=== PATIENT | male | born 1965 | race Caucasian/White ===

== ENCOUNTER 2018-10-06 15:06 | Observation (INO) | payer OTHER ==
[2018-10-06] MEDS ORDERED: D50W 25 GM/50 ML SYRINGE IV PRN (16:19)
[2018-10-06] MEDS ORDERED: GLUCAGON 1 MG/VIAL IM PRN (16:19)
[2018-10-06] MEDS: INSULIN -REGULAR HUMAN 50 UNIT/0.5 ML ML SQ SCH ×2 (16:30→20:56)
--- NOTE | 2018-10-06 17:10 | RAD REPORT ---
EXAM DESCRIPTION: RAD - Chest Pa And Lat (2 Views) - 10/06/2018 4:49 pm CLINICAL HISTORY: Atrial fibrillation COMPARISON: None. TECHNIQUE: PA and lateral views of the chest were obtained. FINDINGS: The lungs are clear of a focal infiltrate, mass, failure or pulmonary edema pattern. Inter stitial markings are mildly prominent suspected to be baseline. Minimal interstitial edema or infiltr ate not excluded. Heart size is normal and central vasculature is within normal limits. No pleural effusion or pneumothorax seen. No acute bony finding noted. Aortic tortuosity is noted. IMPRESSION: No acute cardiopulmonary process. Mild prominence of the interstitial markings favored to be baseline rather than minimal interstitial edema or infiltrate.
[2018-10-06] MEDS ORDERED: CABERGOLINE PO SCH (17:15)
[2018-10-06 17:18] LABS: Absolute Lymphocytes (CBC) 2.3 K/uL (0.7-4.9); Absolute Monocytes 0.9 K/uL (0.1-1.3); Absolute Neutrophil 6.7 K/uL (1.8-8.0); Basophils % 0.7 % (0-1.3); Eosinophils % 2.9 % (0-4.4); Hematocrit 43.6 % (39.6-49.0); Lymphocytes % 22.6 % (15.3-44.8); MCH 30.7 pg (27.0-35.0); MCV 89.4 fL (80-100); MPV 8.9 fL (7.6-11.3); Monocytes % 8.6 % (3.3-12.3); RBC Red Blood Cell Count 4.88 M/uL (4.33-5.43)
[2018-10-06 17:22] LABS: Protime INR 1.3
[2018-10-06 17:36] VITALS: BMI 39.3
[2018-10-06 17:46] LABS: Albumin 3.8 g/dL (3.4-5.0); Bilirubin Total 0.3 mg/dL (0.2-1.0); Magnesium 1.9 mg/dL (1.8-2.4); Potassium 4.2 mmol/L (3.5-5.1); Protein, Total 7.5 g/dL (6.4-8.2); Thyroid Stimulating Hormone 1.19 uIU/mL (0.360-3.740)
--- NOTE | 2018-10-06 18:03 | EKG ---
Test Date: 2018-10-06 Test Time: 16:25:59 Electrophysiology Technologist: LUIS ALBERTO MEASUREMENT RESULTS: Intervals: Rate: 111 MT: QRSD: 96 QT: 330 QTc: 448 [place]: P: MT: QRS: 1 T: 23 INTERPRETIVE STATEMENTS: Atrial fibrillation with rapid ventricular response Abnormal ECG Compared to ECG 10/06/2018 12:50:22 No significant changes Electronically Signed On 10-06-18 18:02:47 FUNDRAISING DIRECTOR by Ronny Marin
[2018-10-06] MEDS: SOTALOL HCL 80 MG TAB PO SCH (18:04)
[2018-10-06] MEDS: RIVAROXABAN 20 MG TABLET PO SCH (18:04)
[2018-10-06] MEDS ORDERED: ROSUVASTATIN 10 MG PO SCH (21:00)
[2018-10-06] MEDS ORDERED: HOME MED 1 EA UNK (Amlodipine Besylate/Benazepril [Amlodipine-Benazepril 5-20 Mg] 1 EACH) PO SCH (22:15)
[2018-10-06 23:22] LABS: Urine Appearance CLOUDY; Urine Bilirubin NEGATIVE (NEG); Urine Blood NEGATIVE (NEG); Urine Color YELLOW; Urine Glucose NEGATIVE (NEG); Urine Protein NEGATIVE (NEG); Urine pH 5.5 (5.0-7.0)
[2018-10-06 23:24] LABS: Urine Microscopic Reflex ORDER UMIC
[2018-10-07 00:15] LABS: Urine Amorphous Sediment 4+ /HPF (NONE SEEN); Urine Bacteria <20 /HPF (NONE SEEN); Urine Culture Reflex Order NOT NEEDED; Urine RBC NONE SEEN /HPF (NONE SEEN)
[2018-10-07] MEDS: SOTALOL HCL 80 MG TAB PO SCH ×2 (05:00→17:13)
[2018-10-07] MEDS: INSULIN -REGULAR HUMAN 50 UNIT/0.5 ML ML SQ SCH ×3 (07:30→16:30)
[2018-10-07] MEDS ORDERED: METFORMIN ER 500 MG TAB PO SCH (08:00)
--- NOTE | 2018-10-07 12:29 | ECHO ---
HEIGHT: 5 ft 7 in WEIGHT: 251 lb 0 oz DATE OF STUDY: 10/07/[address]: Graham Xavier MD 2-DIMENSIONAL: YES M.MODE: YES DOPPLER: YES COLOR FLOW: YES TDS: PORTABLE: DEFINITY: BUBBLE STUDY: DIAGNOSIS: ATRIAL FIBRILLATION CARDIAC HISTORY: CATHERIZATION: NO SURGERY: NO PROSTHETIC VALVE: NO PACEMAKER: NO MEASUREMENTS (cm) DIASTOLIC (NORMALS) SYSTOLIC (NORMALS) IVSd 1.1 (0.6-1.2) LA Diam 3.6 (1.9-4.0) LVEF 67% LVIDd 4.7 (3.5-5.7) LVIDs 2.9 (2.0-3.5) %FS 37% LVPWd 1.2 (0.6-1.2) Ao Diam 3.1 (2.0-3.7) 2 DIMENSIONAL ASSESSMENT: RIGHT ATRIUM: NORMAL LEFT ATRIUM: NORMAL RIGHT VENTRICLE: NORMAL LEFT VENTRICLE: NORMAL TRICUSPID VALVE: NORMAL MITRAL VALVE: NORMAL PULMONIC VALVE: NORMAL AORTIC VALVE: NORMAL PERICARDIAL EFFUSION: NONE AORTIC ROOT: NORMAL LEFT VENTRICULAR WALL MOTION: NORMAL DOPPLER/COLOR FLOW: TRACE TRICUSPID REGURGITATION. NORMAL RIGHT VENTRICULAR SYSTOLIC PRESSURE. COMMENTS: NORMAL 2-DIMENSIONAL ECHOCARDIOGRAM. TRACE TRICUSPID REGURGITATION. ATRIAL FIBRILLATION 80-100 BEATS PER MINUTE. TECHNOLOGIST: SAIRA ROBLEDO
[2018-10-07 12:38] VITALS: O2SAT 95
--- NOTE | 2018-10-07 13:26 | CON ---
Reason For Consult: Atrial fibrillation. History Of Present Illness: Mr. Harrell is 53. He was not aware he was in atrial fibrillation. He w as seeing Dr. Xavier yesterday because of diabetes, hypertension, prolactin, secreting tumor and was fo und to have atrial fibrillation inadvertently. He was placed in the hospital. He has been on Xarelt o and Betapace. He has received 2 doses of Betapace 80 mg. His heart rate is well controlled. He r emains in atrial fibrillation. The patient states his pulse is usually been 80 or 90 for several wee ks. He has not noticed anything irregular. When he first got an EKG, his heart rate while in atrial fibrillation was 111. There is no other abnormality on the EKG other than the atrial fibrillation a nd the heart rate. Mr. Harrell has obesity, underlying diabetes, prolactin secreting tumor, dyslipide arian. He takes carvedilol, cabergoline, metformin, rosuvastatin, amlodipine, and benazepril at home. Carvedilol has been stopped and Betapace has been started, also the Xarelto while in the hospital. Physical Examination: General: 5 feet 7 inches, 251 pounds, obese, alert, oriented, pleasant, not in distress. Lungs: Clear. Heart: Irregular, otherwise it is normal. Vital Signs: Blood pressure is 113/75, heart rate 79. Impression: The patient seems to be tolerating the Betapace well. I suspect he has been in atrial f ibrillation for weeks or months and was just not aware of it, so before trying to cardiovert him, I w ould recommend he be in outpatient for a few weeks. If he tolerates his third dose of Betapace, he c ould be discharged home, have an outpatient stress test, and come back in about 3 weeks for a cardioversion if it is necessary. We have demonstrated he is tolerant to Betapace, does not have a p roarrhythmic effect. LISA/ALONZO Voice ID: [id number] Report ID: [id number]
[2018-10-07 16:11] VITALS: BP 147/95; TEMP 98.6
[2018-10-07] MEDS: RIVAROXABAN 20 MG TABLET PO SCH (17:12)
--- NOTE | 2018-10-07 19:31 | HP ---
Date of Admission: 10/06/2018 Reason For Admission: Atrial fibrillation. History Of Present Illness: This is a 53-year-old male patient, came into office for his regular [facility] visit and during routine evaluation at the office, it was noted that his heart rate was rapid a nd irregular. Upon further questioning, patient admitted that he has felt some fluttering type of se nsation in his chest lately. No chest pain. No shortness of breath. After he was evaluated, an out patient electrocardiogram was done, which showed atrial fibrillation and this was a new onset atrial fibrillation. After details were discussed with him, it was recommended for patient to be admitted t o the [facility] for further evaluation and management of this problem, and the patient was directly ad mitted to telemetry floor. Allergies: HE HAD SIDE EFFECT WITH ATORVASTATIN CAUSING ITCHING. Medications: He takes Cabergoline 0.5 mg, takes half a tablet 2 times every week, carvedilol 25 mg 2 times a day, Crestor 10 mg daily, Lotrel 5/21 tablet daily, metformin 1000 mg 2 times a day. Review of Systems: Cardiovascular: As mentioned above. All other systems reviewed and negative. Social History: Negative for smoking and alcohol use. Family History: Significant for siblings with lung cancer and diabetes. Mother with hypertension an d diabetes. Past Surgical History: Significant for vasectomy. Past Medical History: Significant for hypertension, mixed hyperlipidemia, type 2 diabetes mellitus, pituitary microadenoma, sleep apnea. Physical Examination: Vital Signs: When I saw him at office, his vital signs included height 69 inches, weight 251 pounds, blood pressure 117/79, pulse 112 irregular, respiratory rate 15, temperature 98.9. General: Awake, alert, oriented, not in distress. HEENT: Head atraumatic, normocephalic. Conjunctivae nonerythematous. Sclerae white. Mouth, no thr ush or edema noted. Ears/Nose, no mass, lesion, discharge noted. Neck: Supple. No JVD, lymph nodes, bruit, thyromegaly noted. Lungs: Bilateral good equal air entry. Clear to auscultation. No rhonchi. No rales. Heart: Sounds normal. Heart rate rapid and irregular rhythm. Abdomen: Soft, bowel sounds normal. No guarding, rigidity, tenderness, mass, hepatosplenomegaly, dis tention, or bruit noted. Extremities: No leg edema. No calf tenderness. Skin: No rash, ulcer, cellulitis. Lymphatics: No lymph node enlargement in neck, supraclavicular, infraclavicular region. Neuro: No focal neurological deficit. Chest: Unremarkable. External Genitalia: Deferred. Rectal: Deferred. Laboratory Data: EKG shows atrial fibrillation. White count 10.3, hemoglobin 15, platelets 251. PT , PTT normal, except pro-time is slightly elevated at 15.4, INR 1.30. Sodium 144, potassium 4.2, chl oride 109, bicarb 27, BUN 19, creatinine 1.40, glucose 122. Hemoglobin A1c 7. Liver function tests unremarkable. TSH 1.19. Urinalysis unremarkable. Chest x-ray, no acute cardiopulmonary changes. Impression: 1.Atrial fibrillation with rapid ventricular rate, new onset. 2.Hypertension. 3.Mixed hyperlipidemia. 4.Type 2 diabetes mellitus. 5.Sleep apnea. 6.Pituitary microadenoma. Plan: Admit the patient to hospital for further evaluation and management of this problem patient is appropriate for inpatient and is expected to spend 2 midnights in hospital. We will go ahead and in itiate anticoagulation therapy with Xarelto 20 mg daily starting today. We will also start him on so talol 60 mg twice a day. Home medications will be continued per order. We will monitor him on telem etry, consult Cardiology, get echo with Doppler. Details and plan of treatment discussed with the siena de la garza including side effects of sotalol, including cardiac arrhythmia and side effects of blood thinn er medication like Xarelto including bleeding complications. All of his questions were answered. De tails were discussed with the patient and his . I will see him tomorrow for followup. REE/MODL Voice ID: [id number]
--- NOTE | 2018-10-08 05:08 | DS ---
Date of Discharge: 10/07/2018 Disposition: Discharged to go home. Physical Examination: HEENT: Unremarkable. Lungs: Clear to auscultation. Heart: Sounds normal. Abdomen: Soft. Bowel sounds normal. No guarding, rigidity, tenderness, or distention. Extremities: No leg edema. Discharge Medications And Instructions: 1.Continue all prior home medication except discontinue carvedilol 25 mg twice a day dose. 2.Start to take sotalol 80 mg every 12 hours and Xarelto 20 mg daily with supper. 3.Check blood pressure 2 times a day and if systolic blood pressure is higher than 140 then patient to take carvedilol 25 mg half tablet dose at that particular time. 4.Follow up at my office in 1 week and follow up with pharmacy benefit manager in 2 weeks. Hospital Course: A 53-year-old male patient came into office yesterday for his routine followup visi t. He was noted to have rapid heartbeat and irregular heartbeat. Outpatient EKG was done which show ed atrial fibrillation. This is a new onset atrial fibrillation as patient does not have any prior h istory of atrial fibrillation. He does not have any symptoms of atrial fibrillation like chest pain or shortness of breath. He has noted, upon further questioning, some fluttering type of sensation in chest lately. After he was evaluated and admitted to the hospital, routine blood work was done, whi ch was unremarkable. Electrolytes; TSH was normal. Chest x-ray was unremarkable. EKG upon admissio n had shown atrial fibrillation with rapid ventricular rate and he was started on sotalol as well as Xarelto. He was kept on telemetry unit. He remained in atrial fibrillation, but heart rate was well controlled and Cardiology consultation was requested. Echocardiogram done today shows normal ejecti on fraction. Gas Main Fitter Helper has recommended for patient to have outpatient stress test done and in 3-4 weeks pharmacy benefit manager will consider cardioversion if he continues to remain in atrial fibrillation. We ight loss was advised to patient. Final Diagnoses: 1.Atrial fibrillation with rapid ventricular rate, new onset. 2.Hypertension. 3.Mixed hyperlipidemia. 4.Sleep apnea. 5.Pituitary microadenoma. 6.Type 2 diabetes mellitus. REE/MODL Voice ID: [id number] Report ID: [id number]
== END 2018-10-07 19:02 | disposition home or self-care (01) ==
LOC: 4TH 15:49 → INTOOBSV 15:49
PROVIDERS: ADMIT Internal Medicine; ATTEND Internal Medicine
DX: I48.91 Unspecified atrial fibrillation (principal); I10 Essential (primary) hypertension; E78.2 Mixed hyperlipidemia; G47.30 Sleep apnea, unspecified; D35.2 Benign neoplasm of pituitary gland; E11.9 Type 2 diabetes mellitus without complications
CPT/HCPCS: 36415; 71046; 80053; 81003; 81015; 82962; 83036; 83735; 84443; 85025; 85610; 85730; 93005; 93306; G0378

== ENCOUNTER 2018-10-27 09:08 | Day surgery (SDC) | payer OTHER ==
[2018-10-26 12:59] LABS: Absolute Lymphocytes (CBC) 2.1 K/uL (0.7-4.9); Absolute Monocytes 0.8 K/uL (0.1-1.3); Absolute Neutrophil 5.7 K/uL (1.8-8.0); Basophils % 0.5 % (0-1.3); Eosinophils % 4.2 % (0-4.4); Hematocrit 44.8 % (39.6-49.0); Lymphocytes % 23.4 % (15.3-44.8); MCH 30.6 pg (27.0-35.0); MCV 89.6 fL (80-100); MPV 8.4 fL (7.6-11.3); Monocytes % 8.5 % (3.3-12.3)
[2018-10-26 13:26] LABS: Protime INR 1.74
[2018-10-27] MEDS ORDERED: NA CHLORIDE 0.9% 500 ML ONE (09:26)
[2018-10-27] MEDS ORDERED: MIDAZOLAM HCL 2 MG/2 ML INJ ONE (11:47)
[2018-10-27] MEDS ORDERED: MIDAZOLAM HCL 5 MG/5 ML INJ ONE (11:54)
[2018-10-27 13:40] VITALS: BP 112/93; TEMP 97.8; O2SAT 93
--- NOTE | 2018-10-28 04:44 | OP ---
Surgeon: Ronny Marin MD Electrical Checkout Mechanic: Marisabel Baig. Procedure: Direct current cardioversion. Indication: Atrial fibrillation. History Of Present Illness: Mr. Harrell is a 53-year-old white male with new onset atrial fibrillatio n, has multiple cardiac risk factors. Had a negative cardiac workup. Has been on Xarelto for about 3 weeks with Betapace, remains in atrial fibrillation, admitted as an outpatient for cardioversion. He was given 10 mg of Versed IV push for sedation. He received 1 shock of 100 joules and he converte d to sinus rhythm. There were no complications or blood loss. Total conscious sedation was 30 minut es. Studio Operations Manager: Ronny Marin M.D. Final Diagnosis: This patient is status post successful cardioversion from atrial fibrillation to si nus rhythm. Plan: He will continue the Betapace and Xarelto. He can go home whenever he wakes up and I will see him in the office in 2 weeks. RYAN/ALONZO Voice ID: [id number] Report ID: [id number]
--- NOTE | 2018-10-28 07:13 | EKG ---
Test Date: 2018-10-27 Test Time: 11:53:32 Filling And Packing Supervisor: CLINT MEASUREMENT RESULTS: Intervals: Rate: 83 MA: 156 QRSD: 94 QT: 378 QTc: 444 [place]: P: 29 MA: 156 QRS: 1 T: 37 INTERPRETIVE STATEMENTS: Sinus rhythm with occasional premature ventricular complexes Otherwise normal ECG Compared to ECG 10/06/2018 16:25:59 Ventricular premature complex(es) now present Atrial fibrillation no longer present Electronically Signed On 10-28-18 07:12:13 JOB SETTER by Octavio Harrell
== END 2018-10-27 13:05 | disposition home or self-care (01) ==
LOC: CCL 09:08
PROC: 5A2204Z Restoration of Cardiac Rhythm, Single (ICD-10-PCS; principal; 2018-10-27)
DX: I48.91 Unspecified atrial fibrillation (principal); I10 Essential (primary) hypertension; E11.9 Type 2 diabetes mellitus without complications; E78.6 Lipoprotein deficiency; Z79.01 Long term (current) use of anticoagulants
CPT/HCPCS: 36415; 80048; 85025; 85610; 85730; 92960; 93005; J2250